=== PATIENT | female | born 1975 | race African-American/Black ===

== ENCOUNTER 2019-09-26 07:00 | Inpatient (IN) | payer OTHER ==
[2019-09-08 13:01] VITALS: BMI 29.9
--- NOTE | 2019-09-18 10:03 | HP ---
Admitting History and Physical - Primary Care Physician PCP: Noe Tamayo - Admission Chief Complaint: Right breast cancer History of Present Illness: 44 year old premenapausal , [place]ian, Jahovah's Witness female who presents with screening mammogram last December revealing mutiple calcifications right breast superior and lateral quadrants. She stopped breast feeding 05/2019. This was confirmed suspicious in March on diagnostic films. Right breast stereotactic core biopsy was performedRUOQ and ROLQ both revealed intermediate DCIS and focus of microinvasion. ER/CA+. Breast MRI showed extensive disease right breast and left breast negative. . 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 Incidently noted is a 2.4 cm mass adjacent to the vetebral body in mid thoracic spine consistent with neurogenic tumor or foregut duplication cyst whcich needs to be worked up by her medical oncologist. History Source: Patient Limitations to Obtaining History: No Limitations - Past Medical History Gastrointestinal: Yes: GERD ...LMP: 08/16/19 Additional Past Medical History: 2.4 cm paravetebral mass incisdentally seen on breast MRI - Past Surgical History Past Surgical History: Yes: Appendectomy, Hernia Repair (bilateral at age 31) - Smoking History Smoking history: Never smoked Have you smoked in the past 12 months: No - Alcohol/Substance Use Hx Alcohol Use: Yes (rarely) - Social History Other Social History: Jahovahs witness Home Medications - Allergies Allergies/Adverse Reactions: Allergies Allergy/AdvReac Type Severity Reaction Status Date / Time chloroquine Allergy Intermediate Itching Verified 09/08/19 12:45 - Home Medications Home Medications: Ambulatory Orders Ferrous Sulfate [Feosol] 325 mg PO DAILY 09/08/19 Ranitidine HCl 150 mg PO BID 09/08/19 Family Medical History Other Family History: mat cousin breast ca 43 dcis Physical Examination Constitutional: Yes: No Distress Breast(s): Yes: Other (symetrical, no palpable masses, no adenopathy bilaterally post biopsy changes right breast)
--- NOTE | 2019-09-18 11:02 | HP ---
Admitting History and Physical - Primary Care Physician PCP: Noe Tamayo - Admission Chief Complaint: Right breast cancer History of Present Illness: 44 year old premenapausal female,Togolese ,Jahovahs witness who presents with screening mammogram 12/2018 showing mutiple calcifications right breast superior and lateral regions. She stopped breast feeding . this finding was confirmed suspicious 03/2019 on diagnostic films. Right breast stereotactic core bx's showed RUOQ and RLOQ DCIS and focus of microinvasion ER/KS+. Breast MRI showed extensive disease right breast and left breast negative. genetic test showed vus MLH1. Incidental finding 2.4 cm mass adjacent to the vetebral body in mid thoracic spine consistent with neurogenic tumor or foregut duplication cyst which needs to be worked up by her medical oncologist. History Source: Patient Limitations to Obtaining History: No Limitations - Past Medical History Gastrointestinal: Yes: GERD ...LMP: 08/16/19 Additional Past Medical History: 2.4 cm paravetebral mass incidentally seen on breast MRI - Past Surgical History Past Surgical History: Yes: Appendectomy, Hernia Repair (bilateral at age 31) - Smoking History Smoking history: Never smoked Have you smoked in the past 12 months: No - Alcohol/Substance Use Hx Alcohol Use: Yes (rarely) Home Medications - Allergies Allergies/Adverse Reactions: Allergies Allergy/AdvReac Type Severity Reaction Status Date / Time chloroquine Allergy Intermediate Itching Verified 09/08/19 12:45 - Home Medications Home Medications: Ambulatory Orders Ferrous Sulfate [Feosol] 325 mg PO DAILY 09/08/19 Ranitidine HCl 150 mg PO BID 09/08/19 Family Medical History Other Family History: mat cousin breast cancer 43 Physical Examination Constitutional: Yes: Well Nourished Breast(s): Yes: Other (Bilateral breast symetrical, no palpable masses or adenopathy post bx changes right breast S/P core bx) Problem List - Problems (1) Breast cancer, right breast Code(s): C50.911 - MALIGNANT NEOPLASM OF UNSP SITE OF RIGHT FEMALE BREAST Qualifiers: Breast location: overlapping sites of breast Estrogen receptor status: positive Patient sex: female Qualified Code(s): C50.811 - Malignant neoplasm of overlapping sites of right female breast; Z17.0 - Estrogen receptor positive status [ER+] Assessment/Plan Right total mastectomy,lymphoscintogram, sentenel node biopsy possible axillary node dissection and reconstruction
[2019-09-26] MEDS ORDERED: fentaNYL CITRATE 250 MCG/5 ML VIAL ONE (08:22)
[2019-09-26] MEDS ORDERED: ROCURONIUM BROMIDE 50 MG/5 ML SYRINGE ONE ×2 (08:22→11:26)
[2019-09-26] MEDS ORDERED: SUCCINYLCHOLINE CHLORIDE 200 MG/10 ML SYRINGE ONE (08:22)
[2019-09-26] MEDS ORDERED: PROPOFOL 20 ML ONE ×6 (08:22→13:01)
[2019-09-26] MEDS ORDERED: MIDAZOLAM HCL 2 MG/2 ML SINGLE DOSE VIAL ONE (08:22)
[2019-09-26] MEDS ORDERED: LIDOCAINE HCL/PF 2% SDV 5ML VIAL ONE (08:26)
[2019-09-26] MEDS ORDERED: DEXAMETHASONE SOD PHOSPHATE 4 MG/1 ML VIAL ONE (08:26)
[2019-09-26] MEDS ORDERED: ceFAZolin SODIUM 1 GM VIAL ONE ×2 (08:26→08:31)
[2019-09-26] MEDS ORDERED: KETOROLAC TROMETHAMINE 30 MG/1 ML VIAL ONE (08:26)
[2019-09-26] MEDS ORDERED: ONDANSETRON 4 MG/2 ML VIAL ONE ×2 (08:26→14:01)
[2019-09-26] MEDS ORDERED: SODIUM CHLORIDE 0.9% P/F 10 ML VIAL IJ ONE (08:26)
[2019-09-26] MEDS ORDERED: LIDOCAINE HCL 1%, 10 MG/ML (20ML VIAL) ONE (08:32)
[2019-09-26] MEDS ORDERED: GENTAMICIN SO4 80 MG/2 ML VIAL ONE (08:32)
[2019-09-26] MEDS ORDERED: BUPIVACAINE HCL/PF 2.5 MG/ML - 30 ML VIAL IJ ONE (08:32)
[2019-09-26] MEDS ORDERED: ISOSULFAN BLUE 10 MG/ML VIAL SQ ONE (09:03)
[2019-09-26] MEDS ORDERED: DEXMEDETOMIDINE HCL 200 MCG/2 ML IVPB ONE (09:27)
[2019-09-26] MEDS ORDERED: EPHEDRINE SULFATE/0.9% NACL/PF 50 MG/10 ML SYRINGE NR ONE (11:15)
[2019-09-26] MEDS ORDERED: ONDANSETRON 4 MG/2 ML VIAL IVPUSH PRN (11:19)
[2019-09-26] MEDS ORDERED: ZOLPIDEM TARTRATE 5 MG TABLET PO PRN (11:19)
[2019-09-26] MEDS ORDERED: DOCUSATE SODIUM 100 MG CAPSULE (FP) PO PRN (11:20)
[2019-09-26] MEDS ORDERED: oxyCODONE HCL 5 MG TABLET PO PRN ×2 (11:20→13:42)
[2019-09-26] MEDS ORDERED: DEXTROSE 5%-0.45% SALINE 1,000 ML IV SCH (11:30)
[2019-09-26] MEDS ORDERED: NITROGLYCERIN 2% OINTMENT - 1GM PACKET TD ONE (12:53)
[2019-09-26] MEDS ORDERED: NEOSTIGMINE METHYLSULFATE 0.5 MG/ML - 10 ML MDV ONE (13:00)
--- NOTE | 2019-09-26 13:31 | SURG ---
Surgery Nurse Substance Abuse Note Nurse Substance Abuse: Riley Cisneros PA-C Date of Service: 09/26/19 Diagnosis: Breast cancer Procedure: Right breast reconstruction with alloderm and arts therapist s/p mastectomy I was present for the entirety of the operative procedure. For further detail, please refer to operative report. Visit type - Case Type Case Type: Scheduled - Emergency Emergency Visit: No - New patient This patient is new to me today: Yes Date on this admission: 09/26/19 - Critical Care Critical Care patient: No
[2019-09-26] MEDS ORDERED: PROMETHAZINE HCL 25 MG/1 ML VIAL IVPUSH PRN (13:42)
[2019-09-26] MEDS: ONDANSETRON 4 MG/2 ML VIAL IVPUSH PRN ×2 (14:05→17:29)
--- NOTE | 2019-09-26 14:21 | OP ---
DATE OF OPERATION: 09/26/2019 TITLE OF PROCEDURE: Right breast reconstruction using tissue broadcast technician and acellular dermal matrix with a separate 4 cm complex closure of right axillary wound. ATTENDING SURGEON: Fredrick Rangel MD ENGINEERING DESIGNER: ARTHUR Spencer The procedure was performed in combination with a right-sided mastectomy and right-sided sentinel lymph node biopsy with Dr. Noe Tamayo and his team. That portion of the procedure will be dictated separately by Dr. Tamayo. PROCEDURE: Patient is seen in the holding area. She is marked for the mastectomy incision. She is given HIEN hose and sequential compression stockings. She was given a g of Ancef. The inframammary fold was marked and it is also planned and marked to be lowered by 2 cm. The patient is then brought to the operating room and placed in the supine position. The position is carefully checked and positioned by Noe Tamayo and his team, as well I am brought into the procedure after completion of the mastectomy and sentinel lymph node biopsy. At this point a new timeout was called. Patient, procedure, side, site are verified. The hemostasis was meticulously achieved within the wound. It was copiously irrigated with triple antibiotic solution. Standard triple antibiotic solution is used. The pectoralis muscle was then identified and elevated from lateral to medial. The costal attachments inferiorly are divided. A plane is dissected and the markings were made along the chest wall for the placement of the alloderm. The inframammary fold is then lowered, dissecting through the inframammary ligament 2 cm inferiorly. The inframammary ligament is divided in multiple locations vertically to allow for creation of a new inframammary fold. The alloderm was then brought onto the field. This is a 19 x 9 contour perforated thick sheet of alloderm oriented properly, rinsed in triple antibiotic solution. It is secured to the markings to accommodate a 15.5 cm width tissue broadcast technician. It is secured to the chest wall with a running 2-0 PDS suture. Upon completion of this, gloves were changed. A MAYKOR [id number] tissue broadcast technician is brought onto the field. It is evacuated of all air, oriented properly. It is secured within the pocket. Its position is secured using 3 separate suture tabs triangulated to prevent rotation. The superior bridge of the alloderm was then secured to the inferior free edge of the pectoralis major muscle after copious irrigation of the tissue broadcast technician in situ. With this using the closed filling system, the tissue broadcast technician is inflated to 150 mL of normal saline and the hemostasis is then once again meticulously achieved. Size 15 round Carlos drains are then brought out through lateral stab wound incisions. A total of 10 mL of 0.25% Marcaine plain is injected to the perioperative area. The free skin edges, both the axillary wound, as well as the mastectomy wounds, are trimmed, bright red bleeding is seen. The Spy Indocyanine Scan is then brought to assess perfusion. Adequate perfusion of both the inferior and superior mastectomy flaps is noted, as well as good dermal bleeding when the edges are trimmed. Closure was then performed first with a running 3-0 Vicryl suture within the breast capsular layer fat, followed by a series of interrupted deep dermal 3-0 Monocryl, followed a running subcuticular 3-0 Monocryl suture. The closure of the right axillary wound is performed. The superficial axillary fascia is closed with a series of interrupted 3-0 Monocryl suture, followed by a running-locking deep dermal 3-0 Monocryl suture, followed by a running subcuticular 3-0 Monocryl suture. As per routine Nitropaste was placed on the inferior skin flap. Drains were placed to bulb suction. The dressing is applied with Steri-Strips, Telfa, ABD gauze, Hypafix Tape and a breast binder. Patient awoken from anesthesia and transferred to Recovery without complication. Perico [id number]
[2019-09-26] MEDS: CEFAZOLIN 1 GM/D5W 1 GM/50 ML BAG IVPB SCH ×2 (16:00→22:00)
--- NOTE | 2019-09-26 16:18 | OP ---
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 PROCEDURE PERFORMED: Right nipple-sparing mastectomy with sentinel lymph node biopsy. ANESTHESIA: General, intubated. SURGEON: Francine Tamayo MD PROVIDER NETWORK MGR: ARTHUR Lee ESTIMATED BLOOD LOSS: Minimal. COMPLICATIONS: None. DESCRIPTION OF PROCEDURE: The patient was made aware of the risks and benefits of the procedure and consented. Preoperatively, the patient went to Nuclear Medicine, where her right breast was injected with nuclear tracer in the skin. She was then placed in the supine position on the operating room table. After general anesthesia was induced, the patient was intubated. The operative site was prepped and draped in the usual sterile fashion. Then 2 mL of 1% isosulfan blue was locally infiltrated into the right breast. After waiting approximately 10 minutes, with gentle manual compression, a curvilinear incision was made in the right axilla. Using blunt and sharp dissection, tissues were dissected down, revealing 1 blue hot lymph node. This was surgically excised and submitted for frozen section. Frozen section was reported as negative. Palpation of the rest of the axilla and interrogation with the Neoprobe revealed no other suspicious nodes or hot spots. The mastectomy was then approached. A horizontally-oriented elliptical incision was made around the nipple. Using electrocautery, skin flaps were made superior to the clavicle, medial to the sternum, lateral to the latissimus dorsi and inferior to the inframammary fold. The breast tissue was taken off the pectoralis muscle and extended laterally to the latissimus dorsi, and this was then submitted with a short suture superior and long suture lateral. The wound was copiously irrigated with normal saline and hemostasis maintained by electrocautery. The procedure was then turned over to Dr. Fredrick Rangel, who did an drop wire stringer reconstruction. He will dictate his portion of the procedure separately. FRANCINE TAMAYO M.D. [id number]
[2019-09-26] MEDS: oxyCODONE HCL 5 MG TABLET PO PRN (16:30)
--- NOTE | 2019-09-26 18:10 | PN ---
Progress Note (short form) - Note Progress Note: VSS AF DONATO 100 and 50. No hematoma Encourage ambulation and IS
[2019-09-26] MEDS: FAMOTIDINE 20 MG TABLET PO SCH (22:00)
[2019-09-27] MEDS: CEFAZOLIN 1 GM/D5W 1 GM/50 ML BAG IVPB SCH ×4 (03:03→21:14)
[2019-09-27] MEDS: HEPARIN NA (PORCINE) 5,000 UNITS/ML 1ML VIAL SQ SCH ×2 (08:38→21:14)
[2019-09-27 09:09] LABS: HEMATOCRIT 26.9 % (32.4-45.2); HEMOGLOBIN 8.7 GM/dl (10.7-15.3); MCH 27.1 pg (25.7-33.7); MCHC 32.3 g/dl (32.0-36.0); MEAN CELL VOLUME 84.1 fl (80-96); MEAN PLT VOLUME 11.4 fl (7.5-11.1); PLATELET COUNT 166 K/MM3 (134-434); RDW 16.1 % (11.6-15.6); WHITE BLOOD COUNT 8.3 K/mm3 (4.0-10.8)
[2019-09-27] MEDS: FAMOTIDINE 20 MG TABLET PO SCH ×2 (10:07→21:14)
[2019-09-27] MEDS: ACETAMINOPHEN 325 MG TABLET (FP) PO PRN ×2 (11:25→21:31)
--- NOTE | 2019-09-27 12:21 | PN ---
Progress Note (short form) - Note Progress Note: POD 1 Healing well VSS AF ODNATO's 20 and 40 serosanguinous. Dressings changed Ambulating Celina reg diet good UOP HCT 27 Encourage mor IS Anticipate d/c home tomorrow HLIV
[2019-09-27] MEDS: oxyCODONE HCL 5 MG TABLET PO PRN (21:59)
[2019-09-28] MEDS: CEFAZOLIN 1 GM/D5W 1 GM/50 ML BAG IVPB SCH ×2 (02:40→09:43)
[2019-09-28] MEDS: ACETAMINOPHEN 325 MG TABLET (FP) PO PRN (06:18)
--- NOTE | 2019-09-28 08:24 | PN ---
Progress Note (short form) - Note Progress Note: POD 2 VSS AF Patient still requiring zhang control which is the reason to suspend discharge Ambulating DONATO's thin serosanguinous Plan for discharge tomorrow
--- NOTE | 2019-09-28 09:28 | PN ---
Progress Note, Physician Chief Complaint: S/P right mastectomy with snbx and tissue plate molder POD#1 History of Present Illness: Patient was seen at the bedside and reports pain at the surgical site. She is tolerating po well otherwise. - Current Medication List Current Medications: Active Medications Acetaminophen (Tylenol -) 650 mg PO Q4H PRN PRN Reason: FEVER Last Admin: 09/28/19 06:18 Dose: 650 mg Docusate Sodium (Colace -) 100 mg PO BID PRN PRN Reason: CONSTIPATION Famotidine (Pepcid -) 20 mg PO BID [facility] Last Admin: 09/27/19 21:14 Dose: 20 mg Ferrous Sulfate (Feosol -) 325 mg PO DAILY [facility] Heparin Sodium (Porcine) (Heparin -) 5,000 unit SQ BID [facility] Last Admin: 09/27/19 21:14 Dose: 5,000 unit Cefazolin Sodium (Ancef 1 Gm Premixed Ivpb -) 1 gm in 50 mls @ 100 mls/hr IVPB Q6H-IV ELY Stop: 10/03/19 14:59 Last Admin: 09/28/19 02:40 Dose: 100 mls/hr Oxycodone HCl (Roxicodone -) 5 mg PO Q4H PRN PRN Reason: PAIN LEVEL 1-5 Last Admin: 09/27/19 21:59 Dose: 5 mg Oxycodone HCl (Roxicodone -) 10 mg PO Q4H PRN PRN Reason: PAIN LEVEL 6-10 Zolpidem Tartrate (Ambien -) 5 mg PO HS PRN PRN Reason: Insomnia - Objective Vital Signs: Vital Signs Temperature 98.3 F 09/28/19 06:00 Pulse Rate 75 09/28/19 06:00 Respiratory Rate 18 09/28/19 06:00 Blood Pressure 114/46 L 09/28/19 06:00 O2 Sat by Pulse Oximetry (%) 97 09/28/19 08:55 Constitutional: Yes: Well Nourished, Calm Breast(s): Yes: Other (Right breast dressing is clean without evidence of bleeding. JPs x 2 with serosanginous discharge noted.) Labs: CBC, BMP 09/27/19 08:37 Problem List - Problems (1) Breast cancer, right breast Code(s): C50.911 - MALIGNANT NEOPLASM OF UNSP SITE OF RIGHT FEMALE BREAST Qualifiers: Breast location: overlapping sites of breast Estrogen receptor status: positive Patient sex: female Qualified Code(s): C50.811 - Malignant neoplasm of overlapping sites of right female breast; Z17.0 - Estrogen receptor positive status [ER+] Assessment/Plan Plan: Teach DONATO monitoring information services consultant to see patient for VNS at home Possible discharge in the pm or am Continue current tx regime
[2019-09-28] MEDS: HEPARIN NA (PORCINE) 5,000 UNITS/ML 1ML VIAL SQ SCH (09:44)
[2019-09-28] MEDS: FAMOTIDINE 20 MG TABLET PO SCH (09:45)
[2019-09-28] MEDS ORDERED: FERROUS SO4 325 MG TABLET (FP) PO SCH (10:00)
[2019-09-28 10:57] VITALS: TEMP 98.6
[2019-09-28 14:09] VITALS: BP 118/67; PULSE 88
[2019-09-28] MEDS: oxyCODONE HCL 5 MG TABLET PO PRN (15:15)
--- NOTE | 2019-10-02 14:36 | PATH ---
Surgical Pathology Report Patient Name: JIM DAWN Med. Rec. #: [id number] /Age/Gender: 1975 (Age: 44) / F Account: [id number] Location: [facility] Taken: 09/26/2019 Received: 09/26/2019 Reported: 10/02/2019 Physicians: Noe Tamayo M.D. Specimen(s) Received A: RIGHT AXILLARY SENTINEL NODE #1 (FS) B: RIGHT BREAST MASTECTOMY Clinical History DCIS Intraoperative Consult Diagnosis A. Right axillary sentinel node #1, frozen section: One negative lymph node (0/1). Sage Mejia M.D. 09/26/19 Final Diagnosis A. RIGHT AXILLARY SENTINEL NODE #1, EXCISION (FS): ONE LYMPH NODE, NEGATIVE FOR METASTATIC CARCINOMA (0/1). B. RIGHT BREAST, MASTECTOMY: DUCTAL CARCINOMA IN SITU (DCIS), INTERMEDIATE NUCLEAR GRADE, SHOWING SOLID, CRIBRIFORM AND MICROPAPILLARY PATTERNS, WITH ASSOCIATED NECROSIS AND CALCIFICATIONS, INVOLVING UPPER OUTER AND LOWER OUTER QUADRANTS, WITH MARKED LOBULAR EXTENSION. DCIS PRESENT IN 14 OF 28 TOTAL SLIDES; THE EXTENT OF DCIS MEASURES AT LEAST 2.5 CM IN GREATEST DIMENSION. SURGICAL MARGIN (ANTERIOR SOFT TISSUE MARGIN) IS POSITIVE FOR DCIS. PRIOR BIOPSY SITES WITH REACTIVE CHANGES IDENTIFIED. PATHOLOGIC STAGE (pTNM): pTis, pN(sn)0 ALSO SEE SURGICAL PATHOLOGY CANCER CASE SUMMARY BELOW. Comment: Immunohistochemical stains (block B4 and B10) performed and interpreted at [facility] show the following results: smooth muscle myosin heavy chain and p63 highlight the myoepithelial cell layer of the glands. E-cadherin (block B4) shows diffuse and membranous staining of the tumor cells. The morphology and immunophenotype support ductal carcinoma in situ. Immunohistochemical cytokeratin stain AE1/AE3 is used to evaluate the reactive changes on prior biopsy site (block B16) and is negative for invasive carcinoma. Comments DCIS of the Breast: Surgical Pathology Cancer Case Summary (Based on AJCC TNM 8 th edition) Procedure _x_ Total mastectomy (including nipple-sparing and skin-sparing mastectomy) Specimen Laterality _x_ Right Size (Extent) of DCIS Estimated size (extent) of DCIS (greatest dimension using gross and microscopic evaluation): at least (millimeters): 25 mm Number of blocks with DCIS: 14 Number of blocks examined: 28 Histologic Type _x_ Ductal carcinoma in situ Architectural Patterns _x_ Cribriform _x_ Micropapillary _x_ Solid Nuclear Grade _x_ Grade II (intermediate) Necrosis _x_ Present, central (expansive "comedo" necrosis) Margins _x_ Positive for DCIS Specify margin: Anterior soft tissue margin Regional Lymph Nodes _x_ Uninvolved by tumor cells Number of Lymph Nodes Examined: 1 Number of [place] Nodes Examined: 1 Pathologic Stage Classification (pTNM, AJCC 8th Edition) Primary Tumor (pT) _x_ pTis (DCIS): Ductal carcinoma in situ Regional Lymph Nodes (pN) _x_ pN(sn)0: No regional lymph node metastasis identified or ITCs only Microcalcifications _x_ Present in DCIS _x_ Present in nonneoplastic tissue Biomarker Studies Results of ER and PA studies performed on this specimen (block# B4) at [facility] are as follows: ER (clone [id number] mouse monoclonal antibody by [employer]): 90% nuclear staining with weak to strong intensity (positive). PA (clone16 mouse monoclonal antibody by [employer]): 40% nuclear staining with moderate to strong intensity (positive). Positive and negative controls (internal if applicable) show appropriate results. Formalin fixation and cold ischemic times are within current ASCO/CAP recommendations for ER, PA and Her2 testing. Electronically Signed Ajit Figueroa M.D. Gross Description A. Received fresh for frozen section evaluation, labeled "right axillary sentinel node #1" is a 2.3 x 0.6 x 0.3 cm lymph node with attached fatty tissue. Frozen section is performed on the lymph node. The frozen section residue is entirely submitted in one cassette. B. Received in formalin, labeled "right breast mastectomy," is a 783 gram, 17.0 x 16.5 x 6.0 cm. right mastectomy specimen with a short suture marking the superior aspect and a long suture marking the lateral aspect of the specimen, per the surgeon. The anterior surface displays a 12.5 x 5.5 cm brown, elliptical portion of skin with a 1.4 cm in diameter nipple. The deep margin is inked black and the anterior soft tissue margin is inked blue. The specimen is serially sectioned from lateral to medial. Sectioning reveals abundant dense, white, focally firm fibrous tissue with dilated ducts. No definitive mass is identified. Overnight Caregiver sections are submitted in 23 cassettes as follows: 1-serially sectioned nipple; 2-subareolar shave; 3-6-upper outer quadrant; 7-13-lower outer quadrant; 14-16-upper inner quadrant; 17-19-lower inner quadrant; 65-17-utzikwmg soft tissue margin; 22-skin; 23-deep margin. Additional cassettes are submitted as follows: 52-10-mnjoxh margin; 58-19-sctcnzg margin. Time to formalin fixation: 30 minutes Total formalin fixation time: Approximately 54 hours. 09/28/2019 [facility]09/28/2019
== END 2019-09-28 15:23 | disposition home or self-care (01) | DRG 362 ==
LOC: FM/S 08:06
PROVIDERS: ADMIT Surgery Surgical Oncology; ATTEND Surgery Surgical Oncology
PROC: 0HTT0ZZ Resection of Right Breast, Open Approach (ICD-10-PCS; principal; 2019-09-26 10:04)
PROC: 07B50ZX Excision of Right Axillary Lymphatic, Open Approach, Diagnostic (ICD-10-PCS; 2019-09-26 10:04)
PROC: 0HHT0NZ Insertion of Tissue Expander into Right Breast, Open Approach (ICD-10-PCS; 2019-09-26 10:04)
DX: D05.11 Intraductal carcinoma in situ of right breast (principal); Z17.0 Estrogen receptor positive status [ER+]; K21.9 Gastro-esophageal reflux disease without esophagitis
CPT/HCPCS: 36415; 76098-TC-FY; 78195-TC; 84703; 85027; 87389; 88307-TC; 88331-TC; 88341-TC; 94760; A9541; J1644

== ENCOUNTER 2020-04-29 06:39 | Day surgery (SDC) | payer OTHER ==
[2020-04-25 17:02] VITALS: BMI 28.3
[2020-04-29] MEDS ORDERED: GENTAMICIN SO4 80 MG/2 ML VIAL ONE (07:18)
[2020-04-29] MEDS ORDERED: ceFAZolin SODIUM 1 GM VIAL ONE ×3 (07:18→12:31)
[2020-04-29] MEDS ORDERED: LIDOCAINE HCL 1%, 10 MG/ML (20ML VIAL) ONE (07:19)
[2020-04-29] MEDS ORDERED: BACITRACIN 15 GM TUBE TOPICAL OINTMENT ONE (07:19)
[2020-04-29] MEDS ORDERED: EPINEPHrine/PF 1 MG/1 ML (1:1,000) AMPULE ONE (07:19)
[2020-04-29] MEDS ORDERED: PROPOFOL 20 ML ONE ×4 (08:10)
[2020-04-29] MEDS ORDERED: fentaNYL CITRATE 250 MCG/5 ML VIAL ONE ×2 (08:10→09:42)
[2020-04-29] MEDS ORDERED: SUCCINYLCHOLINE CHLORIDE 200 MG/10 ML SYRINGE ONE (08:11)
[2020-04-29] MEDS ORDERED: ROCURONIUM BROMIDE 50 MG/5 ML SYRINGE ONE (08:11)
[2020-04-29] MEDS ORDERED: MIDAZOLAM HCL 2 MG/2 ML SINGLE DOSE VIAL ONE (08:11)
[2020-04-29] MEDS ORDERED: LIDOCAINE HCL 2% JELLY (5 ML/TUBE) ONE (08:12)
[2020-04-29] MEDS ORDERED: DEXAMETHASONE SOD PHOSPHATE 4 MG/1 ML VIAL ONE (08:12)
[2020-04-29] MEDS ORDERED: ONDANSETRON 4 MG/2 ML VIAL ONE ×2 (08:12→14:06)
[2020-04-29] MEDS ORDERED: LIDOCAINE HCL/PF 2% SDV 5ML VIAL ONE (08:12)
[2020-04-29] MEDS ORDERED: KETOROLAC TROMETHAMINE 30 MG/1 ML VIAL ONE (08:12)
[2020-04-29] MEDS ORDERED: MINERAL OIL/PETROLATUM,WHITE 3.5 GM TUBE ONE (09:00)
[2020-04-29] MEDS ORDERED: BACITRACIN 15 GM TUBE TOPICAL OINTMENT TP ONE (11:18)
[2020-04-29] MEDS ORDERED: EPHEDRINE SULFATE/0.9% NACL/PF 50 MG/10 ML SYRINGE NR ONE (12:05)
[2020-04-29] MEDS ORDERED: oxyCODONE HCL 5 MG TABLET PO PRN ×4 (13:44→13:47)
[2020-04-29] MEDS ORDERED: ONDANSETRON 4 MG/2 ML VIAL IVPUSH PRN (13:44)
[2020-04-29] MEDS ORDERED: PROMETHAZINE HCL 25 MG/1 ML VIAL IVPUSH PRN (13:44)
[2020-04-29] MEDS ORDERED: ONDANSETRON 4 MG/2 ML VIAL IVPB PRN (13:47)
--- NOTE | 2020-04-29 13:51 | OP ---
Operative Note - Note: Operative Date: 04/29/20 Pre-Operative Diagnosis: right breast cancer Operation: left breast lift, right capsulectomy with implant exchange, liposuction to the abdomen with fat grafting to the right breast Post-Operative Diagnosis: Same as Pre-op Surgeon: Fredrick Rangel Operative Report Dictated: Yes
[2020-04-29] MEDS ORDERED: LACTATED RINGERS SOLUTION 1,000 ML IV SCH (14:00)
--- NOTE | 2020-04-29 19:31 | CONSULT ---
Consultation: REQUESTING PROVIDER: Dr. Fredrick Rangel CONSULT REQUEST: We have been asked to medically evaluate this patient for Hypoxia, Anemia. HISTORY OF PRESENT ILLNESS: This is a 45 y/o female with a PMHx of Anemia, R- Breast Ca, who had elective surgery today. s/p Left Breast Lift, Right Capsulectomy with Implant Exchange, Liposuction to the abdomen with Fat Grafting to the Right Breast POD #0. Patient was noted to be Hypoxic post surgery. Patient reports feeling lightheaded with SOB while in PACU improved with O2. Patient reports lightheadedness when sitting up in bed. She has no other complaints. Patient reports voiding earlier this evening, denies flatulence or BM. She denies N/V, fever, chills, LOPEZ, CP, palpitations, AP, dysuria. REVIEW OF SYSTEMS: CONSTITUTIONAL: Absent: fever, chills, diaphoresis, generalized weakness, malaise, loss of appetite, weight change HEENT: Absent: rhinorrhea, nasal congestion, throat pain, throat swelling, difficulty swallowing, mouth swelling, ear pain, eye pain, visual changes CARDIOVASCULAR: Absent: chest pain, syncope, palpitations, irregular heart rate, lightheadedness, peripheral edema RESPIRATORY: dyspnea with exertion Absent: cough, shortness of breath, orthopnea, wheezing, stridor, hemoptysis GASTROINTESTINAL: Absent: abdominal pain, abdominal distension, nausea, vomiting, diarrhea, constipation, melena, hematochezia GENITOURINARY: Absent: dysuria, frequency, urgency, hesitancy, hematuria, flank pain, genital pain MUSCULOSKELETAL: Absent: myalgia, arthralgia, joint swelling, back pain, neck pain SKIN: Absent: rash, itching, pallor HEMATOLOGIC/IMMUNOLOGIC: Absent: easy bleeding, easy bruising, lymphadenopathy, frequent infections ENDOCRINE: Absent: unexplained weight gain, unexplained weight loss, heat intolerance, cold intolerance NEUROLOGIC: dizziness, Absent: headache, focal weakness or paresthesias, unsteady gait, seizure, mental status changes, bladder or bowel incontinence PSYCHIATRIC: Absent: anxiety, depression, suicidal or homicidal ideation, hallucinations. PHYSICAL EXAMINATION Vital Signs - 24 hr 04/29/20 04/29/20 04/29/20 07:20 13:35 13:40 Temperature 98 F 98.3 F Pulse Rate 57 L 80 78 Respiratory 16 15 16 Rate Blood Pressure 112/43 L 133/46 L 123/60 O2 Sat by Pulse 100 100 100 Oximetry (%) 04/29/20 04/29/20 04/29/20 13:45 13:50 14:05 Temperature Pulse Rate 83 70 82 Respiratory 15 15 16 Rate Blood Pressure 116/59 L 140/72 129/59 L O2 Sat by Pulse 100 100 100 Oximetry (%) 04/29/20 04/29/20 04/29/20 14:20 14:35 14:50 Temperature Pulse Rate 73 78 85 Respiratory 16 17 21 H Rate Blood Pressure 126/70 135/65 123/65 O2 Sat by Pulse 100 100 100 Oximetry (%) 04/29/20 04/29/20 04/29/20 16:00 16:20 16:35 Temperature 97.6 F 97.6 F Pulse Rate 76 80 80 Respiratory 20 20 20 Rate Blood Pressure 122/63 125/63 126/83 O2 Sat by Pulse 100 100 100 Oximetry (%) 04/29/20 04/29/20 04/29/20 16:50 17:15 17:50 Temperature Pulse Rate 80 64 64 Respiratory 20 20 20 Rate Blood Pressure 101/50 L 112/48 L 110/68 O2 Sat by Pulse 100 100 100 Oximetry (%) 04/29/20 04/29/20 17:55 18:25 Temperature 98.0 F Pulse Rate 64 57 L Respiratory 20 18 Rate Blood Pressure 110/68 110/59 L O2 Sat by Pulse 100 100 Oximetry (%) GENERAL: Awake, alert, and fully oriented, in no acute distress. HEAD: Normal with no signs of trauma. EYES: Pupils equal, round and reactive to light, extraocular movements intact, sclera anicteric, conjunctiva clear. No lid lag. EARS, NOSE, THROAT: Ears normal, nares patent, oropharynx clear without exudates. Dry mucous membranes. NECK: Normal range of motion, supple without lymphadenopathy, JVD, or masses. LUNGS: Breath sounds equal, clear to auscultation bilaterally. No wheezes, and no crackles. No accessory muscle use. HEART: Regular rate and rhythm, normal S1 and S2 without murmur, rub or gallop. BREASTS: Surgical Dressings c/d/i, TTP ABDOMEN: Hypoactive bowel sounds, abdominal Binder dry serous blood, dressing dry noted. Soft, nontender, not distended, no guarding, no rebound, no masses. No hepatomegaly or splenomegaly. MUSCULOSKELETAL: Normal range of motion at all joints. No bony deformities or tenderness. No CVA tenderness. UPPER EXTREMITIES: 2+ pulses, warm, well-perfused. No cyanosis. No clubbing. Cap refill <2 seconds. No peripheral edema. LOWER EXTREMITIES: TEDs, 2+ pulses, warm, well-perfused. No calf tenderness. No peripheral edema. NEUROLOGICAL: Cranial nerves II-XII intact. Normal speech. Gait not observed. PSYCHIATRIC: Cooperative. Good eye contact. Appropriate mood and affect. SKIN: Warm, dry, normal turgor, no rashes or lesions noted. Laboratory Results - last 24 hr 04/29/20 07:05 Urine HCG, Qual Negative Active Medications Generic Name Dose Route Start Last Admin Trade Name Freq PRN Reason Stop Dose Admin Fentanyl 50 mcg 04/29/20 13:44 04/29/20 15:05 Sublimaze Injection - IVPUSH 12.5 mcg [id number] PRN Administration PAIN-PACU ORDER X 4 DOSES ONLY Lactated Ringer's 1,000 mls @ 75 mls/hr 04/29/20 14:00 Lactated Ringers Solution IV ASDIR ELY Ondansetron HCl 8 mg 04/29/20 13:47 Zofran Injection IVPB Q6H PRN NAUSEA Oxycodone HCl 5 mg 04/29/20 13:47 Roxicodone - PO Q4H PRN PAIN LEVEL 1-5 Oxycodone HCl 10 mg 04/29/20 13:47 Roxicodone - PO Q4H PRN PAIN LEVEL 6-10 Promethazine HCl 12.5 mg 04/29/20 13:44 Phenergan Injection - IVPUSH Q6H PRN NAUSEA-FOR RESCUE AFTER 15 MIN ASSESSMENT/PLAN: This is a 45 y/o female with a PMHx of Anemia, R- Breast Ca (s/p Mastectomy, RT), s/p left breast lift, right capsulectomy with implant exchange, liposuction to the abdomen with fat grafting to the right breast POD #0. Problems: 1. Hypoxia 2. Anemia 3. Breast Ca Plan: See Problem List Dispo: We will continue to follow the patient. Thank you for this consultative opportunity. Problem List - Problems (1) Hypoxia Assessment/Plan: Likely secondary to Anemia vs Atelectasis Continue O2, improved with 2LNC Incentive Spirometer Consider Pulmonology consult if condition worsens Monitor CBC Monitor vitals Code(s): R09.02 - HYPOXEMIA (2) Anemia Assessment/Plan: Hgb 8.6 (pre-op lab 04/27) Fe, TIBC, Ferritin in am Monitor CBC Continue Ferrous Sulfate Patient is a Jehov[employer] Witness- no blood products Code(s): D64.9 - ANEMIA, UNSPECIFIED (3) Breast cancer, right breast Assessment/Plan: s/p L- breast lift, R- capsulectomy with implant exchange, fat grafting to R- breast s/p mastectomy s/p RT f/u with Oncology in outpatient upon d/c Code(s): C50.911 - MALIGNANT NEOPLASM OF UNSP SITE OF RIGHT FEMALE BREAST Qualifiers: Visit type - Emergency Visit Emergency Visit: No - New Patient This patient is new to me today: Yes Date on this admission: 04/29/20 - Critical Care Critical Care patient: No
[2020-04-30] MEDS ORDERED: SODIUM CHLORIDE 0.9% 500 ML INFUS.BAG IV ONE (07:36)
[2020-04-30] MEDS ORDERED: SODIUM CHLORIDE 1,000 ML IV ONE (07:45)
[2020-04-30] MEDS ORDERED: FERROUS SO4 325 MG TABLET (FP) PO SCH (08:00)
[2020-04-30 08:12] LABS: EOS % 0.8 % (0-4.5); HEMATOCRIT 23.8 % (32.4-45.2); RBC 3.34 M/mm3 (3.60-5.2)
[2020-04-30 08:20] LABS: BASO % 0.3 % (0-2.0); LYMPH % 15.8 % (8-40); MCHC 29.5 g/dl (32.0-36.0); MEAN CELL VOLUME 71.2 fl (80-96); MEAN PLT VOLUME 9.8 fl (7.5-11.1); NEUT % 75.1 % (42.8-82.8); PLATELET COUNT 189 K/MM3 (134-434); RDW 19.2 % (11.6-15.6); WHITE BLOOD COUNT 6.1 K/mm3 (4.0-10.8)
[2020-04-30 08:24] LABS: BILIRUBIN,TOTAL 0.3 mg/dl (0.2-1); CREATININE 0.7 mg/dl (0.55-1.3); POTASSIUM 3.7 mmol/L (3.5-5.1); TOT PROT 5.7 g/dl (6.4-8.2)
[2020-04-30 08:26] LABS: ADD RBC MORPHOLOGY YES
[2020-04-30] MEDS ORDERED: CEFAZOLIN 1 GM/D5W 1 GM/50 ML BAG IVPB SCH (09:00)
--- NOTE | 2020-04-30 09:05 | DS ---
Physical Exam: SUBJECTIVE: Patient seen and examined. Feeling well, no lightheadedness or SOB. OBJECTIVE: Vital Signs Period Temp Pulse Resp BP Sys/Pinon Pulse Ox Last 24 Hr 97.6 F-98.3 F 57-91 15-21 93-140/46-83 100-100 PHYSICAL EXAM GENERAL: The patient is awake, alert, and fully oriented, in no acute distress. HEAD: Normal with no signs of trauma. EYES: PERRL, extraocular movements intact, sclera anicteric, conjunctiva clear. ENT: Ears normal, nares patent, oropharynx clear without exudates, moist mucous membranes. NECK: Trachea midline, full range of motion, supple. LUNGS: Breath sounds equal, clear to auscultation bilaterally, no wheezes, no crackles, no accessory muscle use. HEART: Regular rate and rhythm, S1, S2 without murmur, rub or gallop. ABDOMEN: Soft, nontender, nondistended, normoactive bowel sounds, no guarding, no rebound, no hepatosplenomegaly, no masses. EXTREMITIES: 2+ pulses, warm, well-perfused, no edema. NEUROLOGICAL: Cranial nerves II through XII grossly intact. Normal speech, gait not observed. PSYCH: Normal mood, normal affect. SKIN: Warm, dry, normal turgor, dressings clean and dry. LABS Laboratory Results - last 24 hr 04/30/20 04/30/20 07:45 07:45 WBC 6.1 RBC 3.34 L Hgb 7.0 L Hct 23.8 L MCV 71.2 L MCH 21.0 L MCHC 29.5 L RDW 19.2 H Plt Count 189 MPV 9.8 Absolute Neuts (auto) 4.6 Neutrophils % 75.1 Lymphocytes % 15.8 Monocytes % 8.0 Eosinophils % 0.8 Basophils % 0.3 Sodium 137 Potassium 3.7 Chloride 106 Carbon Dioxide 22 Anion Gap 9 BUN 11.0 Creatinine 0.7 Est GFR (CKD-EPI)AfAm 122.13 Est GFR (CKD-EPI)NonAf 105.37 Random Glucose 99 Calcium 8.0 L Total Bilirubin 0.3 AST 18 ALT 12 L Alkaline Phosphatase 51 Total Protein 5.7 L Albumin 3.0 L HOSPITAL COURSE: This is a 45 year-old female with a history of anemia and right breast ca who underwent left breast lift, right capsulectomy with implant exchange, liposuction to the abdomen with fat grafting to the right breast with Dr. Rangel yesterday. Patient was noted to be hypoxic post surgery. Patient reports feeling lightheaded with SOB while in PACU improved with O2. Patient reports lightheadedness when sitting up in bed. Hgb this morning noted to be 7.0 (post-op, fluids). She reports heavy periods since getting the Paraguard IUD (6- 8 days, just finished LMP yesterday). She is a Jehovas Witness and declines blood transfusion for symptomatic anemia. LE dopplers were obtained and are negative for DVT. This morning, she is feeling better. She is prescribed iron (states she does not have it at home), referred to PCP/men's swim coach, and instructed to follow up with plastic surgery. Return precautions reviewed. Date of Admission:04/29/20 Date of Discharge: 04/30/20 Minutes to complete discharge: 35 Discharge Summary Problems reviewed: Yes Reason For Visit: MALIGNANT NEOPLASM OF CENTRAL PORTION OF RIGHT FEM Current Active Problems Anemia (Acute) Hypoxia (Acute) Condition: Stable - Instructions Diet, Activity, Other Instructions: Regular diet Leave all dressings on and dry until follow up in one week Call for increases in pain or fever Make appointments with primary care and men's swim coach (referrals enclosed) Take iron as prescribed Recommend followup labs to assess anemia in one week Return here for lightheadedness/fainting or any other concerning symptoms Referrals: Christal Murcia MD [Staff Physician] - (Gynecology) Etelvina Galaviz MD [Staff Physician] - 1 Week (Gynecology) Alirio Burris MD [Staff Physician] - (Primary care) Disposition: HOME - Home Medications Comprehensive Discharge Medication List: Ambulatory Orders Ferrous Sulfate [Feosol] 325 mg PO DAILY 09/08/19 Problem List - Problems (1) Anemia Problems reviewed: Yes Code(s): D64.9 - ANEMIA, UNSPECIFIED (2) Hypoxia Problems reviewed: Yes Code(s): R09.02 - HYPOXEMIA (3) Breast cancer, right breast Problems reviewed: Yes Code(s): C50.911 - MALIGNANT NEOPLASM OF UNSP SITE OF RIGHT FEMALE BREAST Qualifiers: This patient is new to me today: Yes Date on this admission: 04/30/20 Emergency Visit: No Critical Care patient: No - Discharge Referral Referred to [facility] Med [facility] Yes Physician Referral: Alirio Burris MD (Int Med)
[2020-04-30 10:31] VITALS: BP 109/45; PULSE 81; TEMP 98.6
--- NOTE | 2020-04-30 11:26 | PN ---
Progress Note (short form) - Note Progress Note: 45F PMH breast cancer and anemia POD1 s/p elective reconstructive surgery. Pt's post operative course was complicated by an episode of symptomatic anemia - sensation of dyspnea in absence of hypoxia, hypoventilation or increased work of breathing, fatigue and mild orthostasis. Hemodynamically stable throughout. CBC revealed hgb 7. Pt is a [employer] already receiving iron therapy as an outpatient. Pt symptomatically stable, being discharged home today. Pt states that her pain is well controlled and denies any anesthetic complications.
[2020-04-30 11:31] LABS: ANISOCYTOSIS 2+; PLATELET ESTIMATE ADEQUATE
--- NOTE | 2020-04-30 17:56 | OP ---
DATE OF OPERATION: 04/29/2020 TITLE OF PROCEDURE: Right reconstructed breast capsulectomy, removal of tissue process artist, and replacement with permanent saline breast implant, left breast mastopexy for symmetry and liposuction to the abdomen and flanks with free fat grafting to the superior and superolateral pole of the right reconstructed breast. DESCRIPTION OF PROCEDURE: Patient is marked in the holding area, areas of donor site for fat as well as the recipient sites for fat. She is marked using the planned location for the reconstructed nipple on the right for siting of the left nipple repositioning using a modified Aguilera-type pattern. She is awake and aware of all incisions and resulting scars. Patient is brought to the operating room, placed in a supine position. Sequential compression stockings and HIEN hose are applied. A gram of Ancef is given preoperatively. She is prepped and draped in standard surgical fashion. Timeout was called. Patient, procedure, incision site are verified. At this point, a Jennings catheter was used throughout the procedure, which was removed at the end of the procedure. At this point, the attention is first directed toward the abdomen where wetting solution is infiltrated. The wetting solution is a liter of normal saline with 1 ampule of 1:100,000 epinephrine and 20 mL of 1% lidocaine, 2 L are used for infiltration to the abdomen and bilateral flanks. While this is being done, a 10-cm width inferiorly based pedicle on the left side is marked and a 40-mm cookie cutter is traced around the nipple areola. The nipple is deepithelialized with the exception of the nipple areola. At the end of the nipple deepithelialization, fat harvesting is performed. Fat harvesting is performed using a MicroAire system and a Revolve fat harvesting system. The liposuction is performed to the anterior abdomen and bilateral flanks. A total of 150 mL of processed fat is yielded from this, additional liposuction for contouring was then performed yielding 600 mL from the abdomen and 200 mL from each flank and endpoint was smooth even contour by pinch test. Liposuction holes were closed with 5-0 nylon sutures. The attention is then redirected toward the left-sided breast lift. Skin flaps are elevated superiorly, medially and laterally. Hemostasis is meticulously achieved. The pedicle is translocated into the new keyhole pattern. The skin is then tailor tacked closed, and gown and gloves are changed. Attention is directed towards the right side. An incision is made directly over the existing mastectomy scar. Dissection carried down to the level of the periprosthetic capsule. A stairstep inferior incision is made. The capsulotomy is several centimeters inferior to the skin incision. The tissue process artist is removed. A superior capsulotomy is performed to accommodate for a round implant. The lateral capsule is partially excised and a capsulorrhaphy is performed a series of interrupted [id number] 2-0 PDS suture; inferior pole capsulotomies are performed to allow for preferential inferior pole fill. Sizers are brought onto the field and the patient is seated in an upright position. It is determined a 600 mL implant was the appropriate size for symmetry. At this point a Natrelle style 68HP-600 implant is brought onto the field. It is rinsed in triple antibiotic solution. Triple antibiotic solution is standard triple antibiotic used. With new gloves, the implant is evacuated of all air. It is then inserted and filled in situ to 600 mL. The anterior fill valve is closed. The capsule is then closed with a running locking 3-0 Vicryl suture. Skin is then closed after skin modification of the mastectomy flaps with a series of interrupted buried deep dermal 3-0 Monocryl suture followed by running subcuticular 3-0 Monocryl suture. It should be noted that the fat was actually injected into the superior and lateral portions of the right reconstructed breast while the sizer was in place, not while the implant was in place, to avoid injury to the implant. The fat was injected with Salazar cannulas through the mastectomy incision as well as through 1 separate stab wound incision. A total of 50 mL is able to be used because of the fibrotic changes secondary to radiation. There was inability of the tissue to expand or absorb any more fat. The incision sites were closed with a series of interrupted 5-0 nylon suture. Attention is then finally directed toward the left side for closure. Closure is performed with vertical and horizontal limbs with a series of interrupted buried deep dermal 3-0 Monocryl suture followed by a running subcuticular 3-0 Monocryl suture. The nipple areola is inset with a series of interrupted buried deep dermal 4-0 Monocryl suture followed by a running subcuticular 4-0 Monocryl suture. All tissues appear pink and viable. Patient is fitted into an abdominal compression garment, surgical bra, awoken from anesthesia having tolerated procedure well. Jennings catheter is removed, transferred to recovery without complications. MATY GARZA M.D. [id number]
--- NOTE | 2020-05-02 17:32 | PATH ---
Surgical Pathology Report Patient Name: JIM DAWN Med. Rec. #: [id number] /Age/Gender: 1975 (Age: 45) / F Account: [id number] Location: [facility] Taken: 04/29/2020 Received: 04/29/2020 Reported: 05/02/2020 Physicians: Fredrick Rangel Specimen(s) Received A: ADDITIONAL MASTECTOMY SKIN RIGHT BREAST B: LEFT BREAST SKIN AND TISSUE C: RIGHT BREAST OLD IMPLANT Clinical History Breast cancer Final Diagnosis A. ADDITIONAL MASTECTOMY SKIN, BREAST, RIGHT, EXCISION: BENIGN BREAST BREAST PARENCHYMA. SKIN WITHOUT SIGNIFICANT PATHOLOGIC FINDINGS. B. BREAST SKIN AND TISSUE, LEFT, EXCISION: BENIGN BREAST PARENCHYMA. SKIN WITHOUT SIGNIFICANT PATHOLOGIC FINDINGS C. OLD IMPLANT, BREAST, RIGHT, REMOVAL: BREAST IMPLANT. MACROSCOPIC DIAGNOSIS. Electronically Signed Nazia Frausto M.D. Gross Description A. Received in formalin labeled "additional mastectomy skin right breast," are 2 wilkerson-brown, irregular, unoriented portion of skin with underlying soft tissue measuring 6.5 x 2.3 x 1.8 cm and 10.0 x 1.0 x 0.7 cm. No lesions are identified. Paper Box Cutter sections are submitted in 2 cassettes. B. Received in formalin labeled "left breast skin and tissue," is a 31 g, 8.8 x 7.0 x 1.0 cm aggregate of multiple brown, irregular, unoriented portions of skin admixed with fibrofatty tissue. No discrete lesions are identified. Paper Box Cutter sections are submitted in 2 cassettes. C. Received fresh labeled "right breast old implant," is a 16.0 x 13.5 x 5.5 cm clear, intact, rubbery breast implant. No soft tissue is present. No sections are submitted, gross only. DL/05/01/2020 saudi05/01/2020
== END 2020-04-30 12:23 | disposition home or self-care (01) ==
LOC: FASU 06:39 → FM/S 16:19 → FASU 04-30 12:23
PROVIDERS: ATTEND Plastic Surgery
PROC: 0HRT07Z Replacement of Right Breast with Autologous Tissue Substitute, Open Approach (ICD-10-PCS; 2020-04-29)
PROC: 0KBF0ZZ Excision of Right Trunk Muscle, Open Approach (ICD-10-PCS; 2020-04-29)
PROC: 0HB Skin and Breast, Excision (ICD-10-PCS; 2020-04-29)
PROC: 0HWT0JZ Revision of Synthetic Substitute in Right Breast, Open Approach (ICD-10-PCS; principal; 2020-04-29 08:56)
PROC: 0HPT0NZ Removal of Tissue Expander from Right Breast, Open Approach (ICD-10-PCS; 2020-04-29 08:56)
PROC: 0HRT0JZ Replacement of Right Breast with Synthetic Substitute, Open Approach (ICD-10-PCS; 2020-04-29 08:56)
PROC: [UNRECOGNIZED PROCEDURE] (2020-04-29 08:56)
DX: C50.111 Malignant neoplasm of central portion of right female breast (principal); N65.1 Disproportion of reconstructed breast
CPT/HCPCS: 36415; 80053; 82728; 83540; 83550; 84703; 85025; 88300-TC; 88305-TC; 93970-TC; 94760

== ENCOUNTER 2020-10-18 09:35 | Day surgery (SDC) | payer OTHER ==
[2020-10-18] MEDS ORDERED: FERRIC CARBOXYMALTOSE 750 MG in SODIUM CHLORIDE 250 ML IVPB ONE (14:45)
[2020-10-18 17:59] VITALS: PULSE 58; TEMP 98
[2020-10-18 18:02] VITALS: BP 117/62
== END 2020-10-18 16:20 | disposition home or self-care (01) ==
LOC: JONCNONCHE 09:35
PROVIDERS: ATTEND Internal Medicine Hematology & Oncology
PROC: 3E033GC Introduction of Other Therapeutic Substance into Peripheral Vein, Percutaneous Approach (ICD-10-PCS; principal; 2020-10-18)
DX: D50.9 Iron deficiency anemia, unspecified (principal)
CPT/HCPCS: 96365; C9803; J1439; U0003

== ENCOUNTER 2020-10-25 08:05 | Day surgery (SDC) | payer OTHER ==
[2020-10-25] MEDS ORDERED: FERRIC CARBOXYMALTOSE 750 MG in SODIUM CHLORIDE 250 ML IVPB ONE (15:45)
[2020-10-25 15:55] LABS: BASO % 0.5 % (0-2.0); EOS % 2.2 % (0-4.5); HEMATOCRIT 32.4 % (32.4-45.2); HEMOGLOBIN 10.4 GM/dL (10.7-15.3); LYMPH % 28.7 % (8-40); MCH 25.3 pg (25.7-33.7); MCHC 32.2 g/dl (32.0-36.0); MEAN CELL VOLUME 78.5 fl (80-96); MEAN PLT VOLUME 9.7 fl (7.5-11.1); MONO % 7.7 % (3.8-10.2); NEUT % 60.9 % (42.8-82.8); PLATELET COUNT 168 K/MM3 (134-434); RBC 4.12 M/mm3 (3.60-5.2); RDW 22.5 % (11.6-15.6); WHITE BLOOD COUNT 4.4 K/mm3 (4.0-10.0)
[2020-10-25 16:05] LABS: POTASSIUM 3.8 mmol/L (3.5-5.1)
[2020-10-25 16:08] LABS: ALBUMIN 3.7 g/dl (3.4-5.0); CALCIUM 8.5 mg/dL (8.5-10.1)
[2020-10-25 16:09] LABS: BLOOD UREA NITROGEN 9.7 mg/dL (7-18)
[2020-10-25 16:12] LABS: CREATININE 0.9 mg/dL (0.55-1.3)
[2020-10-25 16:13] LABS: BILIRUBIN,TOTAL 0.2 mg/dL (0.2-1); TOT PROT 7.4 g/dl (6.4-8.2)
[2020-10-25 16:49] LABS: ANISOCYTOSIS 3+; MACROCYTOSIS 0; OVALOCYTE 1+; PLATELET ESTIMATE NORMAL; TARGET CELLS 1+
[2020-10-25 18:59] VITALS: BP 120/60; PULSE 67; TEMP 98.4
== END 2020-10-25 17:00 | disposition home or self-care (01) ==
LOC: JONCNONCHE 08:05
PROVIDERS: ATTEND Internal Medicine Hematology & Oncology
PROC: 3E033GC Introduction of Other Therapeutic Substance into Peripheral Vein, Percutaneous Approach (ICD-10-PCS; principal; 2020-10-25)
DX: D50.9 Iron deficiency anemia, unspecified (principal)
CPT/HCPCS: 36415; 80053; 85025; 96365; J1439

== ENCOUNTER 2021-05-23 06:54 | Day surgery (SDC) | payer BC, OTHER ==
[2021-05-23] MEDS ORDERED: FERRIC CARBOXYMALTOSE 750 MG in SODIUM CHLORIDE 250 ML IVPB ONE (10:00)
[2021-05-23 18:54] VITALS: TEMP 98.5
[2021-05-23 18:55] VITALS: BP 130/46; PULSE 63
== END 2021-05-23 18:00 | disposition home or self-care (01) ==
LOC: JONCNONCHE 06:54
PROVIDERS: ATTEND Internal Medicine Hematology & Oncology
PROC: 3E033GC Introduction of Other Therapeutic Substance into Peripheral Vein, Percutaneous Approach (ICD-10-PCS; principal; 2021-05-23)
DX: D50.9 Iron deficiency anemia, unspecified (principal); D05.11 Intraductal carcinoma in situ of right breast
CPT/HCPCS: 96365; J1439

== ENCOUNTER 2021-05-30 06:51 | Day surgery (SDC) | payer BC, OTHER ==
[2021-05-30] MEDS ORDERED: FERRIC CARBOXYMALTOSE 750 MG in SODIUM CHLORIDE 250 ML IVPB ONE (10:00)
[2021-05-30 17:17] VITALS: TEMP 98.7
[2021-05-30 18:07] VITALS: BP 111/48; PULSE 61
== END 2021-05-30 18:09 | disposition home or self-care (01) ==
LOC: JONCNONCHE 06:51 → J7W 16:42 → JONCNONCHE 18:09
PROVIDERS: ATTEND Internal Medicine Hematology & Oncology
PROC: 3E033GC Introduction of Other Therapeutic Substance into Peripheral Vein, Percutaneous Approach (ICD-10-PCS; principal; 2021-05-30)
DX: D50.9 Iron deficiency anemia, unspecified (principal); D05.11 Intraductal carcinoma in situ of right breast
CPT/HCPCS: 96365; J1439

== ENCOUNTER 2021-12-16 07:15 | Day surgery (SDC) | payer BC ==
[2021-12-16] MEDS ORDERED: FERRIC CARBOXYMALTOSE 750 MG in SODIUM CHLORIDE 250 ML IVPB ONE (11:30)
[2021-12-16 17:58] VITALS: BP 110/57; PULSE 68; TEMP 97.9
== END 2021-12-16 13:00 | disposition home or self-care (01) ==
LOC: JONCNONCHE 07:15
PROVIDERS: ATTEND Internal Medicine Hematology & Oncology
PROC: 3E033GC Introduction of Other Therapeutic Substance into Peripheral Vein, Percutaneous Approach (ICD-10-PCS; principal; 2021-12-16)
DX: D50.9 Iron deficiency anemia, unspecified (principal)
CPT/HCPCS: 84703; 96365; J1439

== ENCOUNTER 2021-12-23 08:23 | Day surgery (SDC) | payer BC ==
[2021-12-23] MEDS ORDERED: FERRIC CARBOXYMALTOSE 750 MG in SODIUM CHLORIDE 250 ML IVPB ONE (09:00)
[2021-12-23 18:22] VITALS: TEMP 98.1
[2021-12-23 18:23] VITALS: BP 96/49; PULSE 72
== END 2021-12-23 13:40 | disposition home or self-care (01) ==
LOC: JONCNONCHE 08:23
PROVIDERS: ATTEND Internal Medicine Hematology & Oncology
PROC: 3E033GC Introduction of Other Therapeutic Substance into Peripheral Vein, Percutaneous Approach (ICD-10-PCS; principal; 2021-12-23)
DX: D50.9 Iron deficiency anemia, unspecified (principal); C50.911 Malignant neoplasm of unspecified site of right female breast
CPT/HCPCS: 96365; J1439

== ENCOUNTER 2022-04-14 07:31 | Day surgery (SDC) | payer BC ==
[2022-04-14] MEDS ORDERED: FERRIC CARBOXYMALTOSE 750 MG in SODIUM CHLORIDE 250 ML IVPB ONE (12:00)
[2022-04-14 17:37] VITALS: BP 110/50; PULSE 64; TEMP 98.9
== END 2022-04-14 17:50 | disposition home or self-care (01) ==
LOC: JONCNONCHE 07:31
PROVIDERS: ATTEND Internal Medicine Hematology & Oncology
PROC: 3E033GC Introduction of Other Therapeutic Substance into Peripheral Vein, Percutaneous Approach (ICD-10-PCS; principal; 2022-04-14)
DX: D50.9 Iron deficiency anemia, unspecified (principal)
CPT/HCPCS: 84703; 96365; J1439

== ENCOUNTER 2022-05-14 08:27 | Day surgery (SDC) | payer BC ==
[2022-05-14] MEDS ORDERED: FERRIC CARBOXYMALTOSE 750 MG in SODIUM CHLORIDE 250 ML IVPB ONE (13:30)
[2022-05-14 15:39] VITALS: BP 106/45; PULSE 57; RESP 18; TEMP 98.1
== END 2022-05-14 15:00 | disposition home or self-care (01) ==
LOC: JONCNONCHE 08:27
PROVIDERS: ATTEND Internal Medicine Hematology & Oncology
PROC: 3E033GC Introduction of Other Therapeutic Substance into Peripheral Vein, Percutaneous Approach (ICD-10-PCS; principal; 2022-05-14)
DX: D50.9 Iron deficiency anemia, unspecified (principal)
CPT/HCPCS: 84703; 96365; J1439